=== PATIENT | female | born 1965 | race Caucasian/White ===

== ENCOUNTER 2023-06-25 06:28 | Day surgery (SDC) | payer BC ==
[2023-06-25] MEDS ORDERED: Ringers Lactate 1,000 ML IV ONE (06:55)
[2023-06-25] MEDS ORDERED: propofoL 200 MG/20 ML VIAL IV ONE (07:27)
[2023-06-25] MEDS ORDERED: LIDOCAINE 1% MPF 5 ML VIAL ONE (07:28)
[2023-06-25] MEDS ORDERED: GLYCOPYRROLATE 0.2 MG/ML SYR ONE (07:28)
--- NOTE | 2023-06-25 07:50 | P.OP ---
Date of Service: 06/25/23 Surgeon: Dr. Mica Ibarra [employer] Supervisor: None Procedure: Evaluation of sleep disordered breathing by examination of upper airway using an endoscope; CPT: 94802 Preoperative diagnosis: Moderate or severe obstructive sleep apnea with positive airway pressure intolerance. Postoperative diagnosis: Moderate or severe sleep apnea with positive pressure airway intolerance. Anesthesia: IV sedation Estimated blood loss: None Complications: None Brief clinical history: This is a 57-year-old patient with a history of moderate to severe symptomatic obstructive sleep apnea who is intolerant and unable to achieve benefit with positive pressure therapy. She presented to the ENT clinic with a body mass index of 33.6, [place] score of 15, sleep study performed May 12, 2022 with a total AHI of 16.4 and a central AHI of 0.5. Her oxygen saturation was less than 88% for 50% of the study. She was unable to tolerate CPAP due to severe facial swelling. The patient presented a morning photograph following use of CPAP which demonstrated severe edema of the upper and lower eyelids. The severity and duration of the facial swelling persisted for several hours after each use and after consultation with ophthalmology eyelid surgery was not recommended since the use of CPAP would not allow for optimal results. They present today for drug-induced sleep endoscopy to better characterize the location and pattern of obstruction and to predict appropriate medical and/or surgical options moving forward Procedure findings: There was no evidence of complete concentric palatal obstruction and they appear to be a candidate anatomically for hypoglossal nerve stimulation therapy. The patient was observed to have predominantly hypopneic episodes with anterior posterior collapse of the palate but no significant lateral or concentric collapse. Description of procedure: The patient was brought to the endoscopy suite and was administered anesthesia via standard drug-induced sleep endoscopy protocol. The patient was administered propofol while under monitoring including oxygen concentration, CO2, blood pressure, and pulse under conditions felt to mimic sleep. The patient was nonresponsive to verbal commands but maintained spontaneous respiration. Patient was noted to have observed apnea and snoring consistent with diagnosis of obstructive sleep apnea. Under these conditions, the flexible endoscope was inserted into both sides of the nose and advanced to the nasopharynx, and oral pharynx with observation of the larynx. The patient had a narrow left nasal cavity. She was noted to have a well-healed but significant inferior turbinate resection. She had a large right inferior meatal antrostomy with no significant crusting or pathology noted within the maxillary sinus. The middle meatus demonstrated partial ethmoidectomy with no active polyps or pus. The scope was advanced to the nasopharynx. There is a small amount of nasal secretions. There was significant anterior posterior collapse of the palate but no lateral or concentric collapse. The soft palate and nasopharyngeal region was observed for several minutes prior to conclusion. At the conclusion of the exam, the scope was withdrawn. There was no evidence of any injury to the nasal mucosa and no evidence of active epistaxis. The patient was monitored with spontaneous ventilation until the patient's level of alertness increased and they responded to verbal commands and demonstrated active and intact control of their airway. The patient was then transferred to appropriate recovery prior to discharge. In summary, there was no evidence of complete concentric palatal obstruction and they appeared to be a candidate anatomically for hypoglossal nerve stimulation. I was present for and personally performed the entire procedure.
[2023-06-25 10:52] VITALS: BP 144/79; TEMP 97.2; O2SAT 97
== END 2023-06-25 08:20 | disposition home or self-care (01) ==
LOC: OR 06:28
PROVIDERS: ATTEND Otolaryngology
PROC: 0CJY8ZZ Inspection of Mouth and Throat, Via Natural or Artificial Opening Endoscopic (ICD-10-PCS; principal; 2023-06-25 07:30)
DX: G47.33 Obstructive sleep apnea (adult) (pediatric) (principal); R22.0 Localized swelling, mass and lump, head; Z68.33 Body mass index [BMI] 33.0-33.9, adult
CPT/HCPCS: 42975; J2704; J2001; J7120

== ENCOUNTER 2023-08-20 09:50 | Day surgery (SDC) | payer BC ==
[2023-08-20] MEDS ORDERED: Ringers Lactate 1,000 ML IV ONE ×2 (10:22→16:55)
[2023-08-20] MEDS ORDERED: LIDOCAINE HCL/EPINEPHRINE 20 ML MDV ONE (12:02)
[2023-08-20] MEDS ORDERED: FENTANYL CITR 100 MCG/2 ML ONE (12:39)
[2023-08-20] MEDS ORDERED: LIDOCAINE 2% MPF 5 ML VIAL ONE (12:39)
[2023-08-20] MEDS ORDERED: propofoL 200 MG/20 ML VIAL IV ONE ×2 (12:39→15:13)
[2023-08-20] MEDS ORDERED: dexAMETHasone 10 MG/ML VIAL ONE (12:42)
[2023-08-20] MEDS ORDERED: ONDANSETRON 4 MG/2 ML VIAL ONE (12:42)
[2023-08-20] MEDS ORDERED: MIDAZOLAM HCL 2 MG/2 ML INJ ONE (12:58)
[2023-08-20] MEDS ORDERED: HYDROMORPHONE HCL 2 MG/ML inj ONE ×2 (12:59→15:16)
[2023-08-20] MEDS ORDERED: LANO/MINERAL OIL/PETRO 3.5 GM ONE (13:16)
[2023-08-20] MEDS ORDERED: CEFAZOLIN SODIUM 1 GM/VIAL ONE (14:34)
[2023-08-20] MEDS ORDERED: EPHEDRINE SULF 50 MG/ML VIAL ONE (14:41)
[2023-08-20] MEDS ORDERED: Mastisol Adhesive Liq ONE (16:53)
--- NOTE | 2023-08-20 17:06 | P.OP ---
Date of Service: 08/20/23 Surgeon: Dr. Mica Ibarra Referring physician: [Dr. Konx] CPT: 90280 insertion of hypoglossal nerve neurostimulator electrode and generator and breathing sensor electrode Preoperative diagnosis: Obstructive sleep apnea with positive airway pressure intolerance Postoperative diagnosis: Same Anesthesia: General via endotracheal tube Estimated blood loss: 15ml Complications: [None] Intraoperative findings: Deep neck due to excessive soft tissue, otherwise routine placement of lead, sensor and pulse generator Brief clinical history: This is a 57-year-old patient with a history of moderate to severe obstructive sleep apnea and an associated body mass index of 33.7. The patient was intolerant and unable to achieve benefit from positive pressure therapy. The patient has passed the clinical, polysomnographic, and endoscopic screening criteria and presents today for implant Procedure description: The patient was brought to the operating room and placed under general anesthesia via endotracheal intubation. The head of bed was turned 180 degrees. The patient's neck and external anatomy was palpated and examined with planned incisions marked with a surgical pen. Monitoring electrodes were placed within the genioglossus and hypoglossal muscle and connected to the NIM box for intraoperative nerve monitoring. The grounding electrode was placed in the patient's left shoulder. An additional electrode was placed in the right lower lip to monitor the marginal mandibular nerve. The patient's face, neck, and chest was prepped and draped in a sterile fashion with the head turned to the left for best exposure of the right neck. A modified submandibular incision was made through the skin, approximately 2 cm below the inferior aspect of the mandible. Dissection was carried down through the subcutaneous tissue and platysma. The platysma was split vertically, parallel to the muscle fibers and additional dissection was carried out for identification of the anterior/inferior border of the submandibular gland. The digastric tendon was identified. 2 silk sutures were placed in the digastric tendon to aid in inferior and anterior retraction. Dissection continued down into the digastric triangle and the posterior border of the mylohyoid muscle was freed and retracted anteriorly. With balanced retraction, the hypoglossal nerve was identified and carefully dissected up towards the floor of the mouth. The superior/posterior branches innervating the hyoglossus muscle were identified visually with anatomic clues and NIM stimulation. Once the anterior/inferior branches of the hypoglossal nerve were isolated, the cuff electrode for the hypoglossal nerve stimulator (C1778; [id number]) was placed distal to these branches innervating the genioglossus, transverse, and vertical muscles. The stimulation lead was anchored to the digastric tendon using the 2 previously placed silk sutures. Slack between the cuff and the anchor was gently tucked deep to the submandibular gland. A second 5 cm incision was made in the right upper chest over the second intercostal space, approximately 3 cm lateral to the sternal margin. Dissection was carried down through the skin and subcutaneous tissue to the fascia of the pectoralis muscle. A suprafascial inferior pocket for the generator was created with blunt dissection and the Bovie electrocautery. The pectoralis major fascia was dissected directly over the second intercostal space with subsequent blunt dissection through the muscle body. The pectoralis was split parallel to muscle fibers and retracted to expose the fatty layer just superficial to the external intercostal muscle. The fatty layer was carefully and bluntly dissected to expose the external intercostal muscles. A small fasciotomy through the external intercostals was performed and the respiratory sensing lead (C1778; [id number]) was advanced with the sensor facing the pleura into the interfascial plane between the external and internal intercostals. The sensing lead was anchored with 3-0 silk to the fascia of the external intercostals. Secondary anchoring sutures of 3-0 silk were placed to the pectoralis major fascia, allowing adequate slack between the anchors. The stimulation lead was then tunneled in a subplatysmal plane with blunt dissection under direct visualization and brought out to the subclavicular pocket where both the stimulation lead and respiratory sensing lead were connected to the implantable pulse generator, using the 2 person, 3 handed approach. The implantable pulse generator (C1767; [id number]) was placed in the subclavicular subcutaneous pocket ensuring lead body was deep to the generator and secured with air knots to the pectoralis fascia using 2-0 silk suture. Diagnostic evaluation confirmed good placement of the stimulation cuff as demonstrated by activation of the genioglossus, and transverse and vertical muscles resulting in unhindered, stiffened tongue protrusion confirmed visually down to a amplitude of 0.3 with no visible activation of the retracting muscles. Diagnostic evaluation also confirmed good respiratory sensor placement as demonstrated by sensing waveform with good rise and fall associated with patient respirations. All the wounds were thoroughly irrigated and closed in 3 layers with deep Polysorb sutures and 5-0 Monocryl subcuticular sutures. Mastisol and Steri- Strips were applied followed by pressure dressings. The patient was awakened, extubated, and transferred to the recovery room in stable condition. I was present for and performed the entire procedure. All sponge and needle counts were confirmed correct by the operating room staff prior to final closure. Postoperative plan: The patient will be discharged home later today in the care of her family and follow-up with Dr. Ibarra in 10 days for wound check and suture removal if required. She will follow-up with the upholstery trimmer in about 6 weeks for planned activation of the device.
[2023-08-20] MEDS ORDERED: LABETALOL 20 MG/4ML SYRINGE IV ONE (17:59)
--- NOTE | 2023-08-20 18:21 | RAD REPORT ---
EXAM DESCRIPTION: RAD - Chest Pa And Lat (2 Views) - 08/20/2023 6:12 pm CLINICAL HISTORY: s/p inspire implant insertion Chest pain. COMPARISON: No comparisons FINDINGS: The lungs are clear. The heart is normal in size. No displaced fractures. Right-sided stim ulation device is present. No pneumothorax is seen. IMPRESSION: No unexpected or unusual post implant finding.
--- NOTE | 2023-08-20 18:24 | RAD REPORT ---
EXAM DESCRIPTION: RAD - Neck Soft Tissue - 08/20/2023 6:12 pm CLINICAL HISTORY: s/p inspire implant insertion COMPARISON: No comparisons FINDINGS: Prevertebral soft tissues are normal. Epiglottis and aryepiglottic folds are normal. Air c olumn is patent. No foreign body is seen.Stimulatory wiring is in the approximate expected location i nferior to the tongue.
[2023-08-20 18:51] VITALS: BP 153/83; TEMP 96.5; O2SAT 92
== END 2023-08-20 18:48 | disposition home or self-care (01) ==
LOC: OR 09:50
PROVIDERS: ATTEND Otolaryngology
PROC: 0JH63MZ Insertion of Stimulator Generator into Chest Subcutaneous Tissue and Fascia, Percutaneous Approach (ICD-10-PCS; principal; 2023-08-20 12:00)
DX: G47.33 Obstructive sleep apnea (adult) (pediatric) (principal); Z68.33 Body mass index [BMI] 33.0-33.9, adult
CPT/HCPCS: 82947; 71046; 70360; 64582; J2704 ×2; J2001; J2250; J1170 ×2; J3010; J1100; J2405; J7120 ×2; J0690